=== PATIENT | male | born 1935 | race Caucasian/White ===

== ENCOUNTER 2016-09-02 13:24 | Outpatient (CLI) | payer MEDICARE, BC ==
[2016-09-02] VITALS (28 sets, daily range): BP systolic 108–155; BP diastolic 55–87; PULSE 60–87; RESP 16–31; TEMP 97.5–97.6; O2SAT 90–96; Ht 167.6 cm; Wt 86.6 kg
[~2016-09-02] VITALS: Ht 167.6 cm; Wt 86.6 kg
[~2016-09-02 13:24] MED LIST: ACET-2321 PO; ALLO300T2 PO; ASCO1TAB13; CARV3.12 PO; CEPH500C2 PO; CIDE300T3; FEXO180T56 PO; FEXO1TAB8; FLUT9.9S EA NOSTRIL; FURO40TA70 PO; GLUC1TAB22 PO; LEVO50TA59 PO; LOSA50TA17 PO; METF-200 PO; MULT-543 PO; MUPI15CR12 TOP; NITR0.4T39 SL; OMEG1CAP17 PO; PANT40TA27 PO; ROSU5TAB3 PO; SALINE FLUSH 10ml SYRINGE IVF PRN; SOTA80TA25 PO; THIA100T55 PO; UBID200C8 PO; [UNRECOGNIZED DRUG - CODE] PO; [UNRECOGNIZED DRUG - CODE] PO
--- NOTE | 2016-09-02 13:35 | NUR ---
ARRIVAL TO FLOOR PT ARRIVED TO FLOOR AT THIS TIME, PT ACCOMPANIED BY HIS . PT TO ROOM AND CHANGING INTO GOWNS. NO CONCERNS NOTED, WILL CONTINUE TO MONITOR.
[2016-09-02 14:51] LABS: BASOPHILS # (AUTO) 0.1 T/MM3 (0-0.2); EOSINOPHILS # (AUTO) 0.3 T/MM3 (0-0.5); EOSINOPHILS % (AUTO) 2.9 % (0-4); HCT - HEMATOCRIT 47.5 % (41-53); HGB - HEMOGLOBIN 15.6 GM/DL (13.5-17.5); IMMATURE GRANULOCYTE # (AUTO) 0.16 T/MM3 (0.00-0.03); IMMATURE GRANULOCYTE % (AUTO) 1.6 % (0.0-0.5); LYMPHOCYTES # (AUTO) 1.8 T/MM3 (1-4.8); MEAN CORPUSCULAR HGB 33.5 UUG (26-34); MEAN CORPUSCULAR HGB CONC(MCHC 32.8 GM/DL (31-37); MEAN CORPUSCULAR VOLUME 101.9 UM3 (80-100); MEAN PLATELET VOLUME 10.1 UM3 (9.4-12.4); MONOCYTES # (AUTO) 0.6 T/MM3 (0-0.8); MONOCYTES % (AUTO) 6.3 % (0-9.0); NEUTROPHILS #(AUTO)-ABSOLUTE 7.2 T/MM3 (1.8-7.7); NEUTROPHILS % (AUTO) 70.2 % (33-66); RED BLOOD COUNT 4.66 M/MM3 (4.50-5.90); WBC - WHITE BLOOD COUNT 10.2 T/MM3 (4.5-11.0)
[2016-09-02 14:57] LABS: INR 1.33 (0.76-1.04); PROTHROMBIN TIME 14.5 SEC (9.31-12.49)
[2016-09-02 15:02] LABS: ANION GAP 13 MEQ/L (5-15); BUN/CREATININE RATIO 28 RATIO (6-26); CHLORIDE 108 MEQ/L (98-107); CO2 - CARBON DIOXIDE 25 MEQ/L (22-30); CREATININE 1.4 MG/DL (0.8-1.5); GLOMERULAR FILTRATION RATE 49; GLUCOSE 136 MG/DL (75-110); POTASSIUM 4.1 MEQ/L (3.6-5); SODIUM 146 MEQ/L (134-144)
[2016-09-02] MEDS ORDERED: PRED5TAB PO (15:23)
[2016-09-02] MEDS ORDERED: ACET-62 PO (15:23)
[2016-09-02] MEDS: NORMAL SALINE 1,000 ML IV SCH (15:55)
[2016-09-02] MEDS ORDERED: MIDAZOLAM 2mg/2ml INJECTION ONE (17:13)
[2016-09-02] MEDS ORDERED: FENTANYL 100mcg/2ml INJECTION ONE (17:13)
[2016-09-02] MEDS ORDERED: LIDOCAINE 1% (10mg/ml) 30ml SDV ONE (17:16)
[2016-09-02] MEDS ORDERED: SALINE FLUSH 10ml SYRINGE ONE (17:16)
[2016-09-02] MEDS ORDERED: WATER FOR INJECTION 20 ML ONE (17:16)
[2016-09-02] MEDS ORDERED: CEFAZOLIN 1 GRAM INJECTION ONE (17:16)
[2016-09-02] MEDS ORDERED: BACITRACIN INJ. 50,000 UNITS VL ONE (17:17)
--- NOTE | 2016-09-02 17:27 | NUR ---
LEFT FLOOR PT LEFT FLOOR AT THIS TIME, THIS RN NOT AWARE THAT PT WAS TAKEN FROM THE FLOOR AT THIS TIME.
--- NOTE | 2016-09-02 17:31 | NUR ---
CM CM IN TO VISIT WITH PT. HE IS ALERT AND ORIENTED. HE IS WITNESSED BY CM TO BE UP AT [facility]. HIS IS PRESENT. SHE DENIES DC NEEDS. SHE PLANS TO CARE FOR PT AT HOME. THEY ARE GIVEN BAUTISTA AND CM CONTACT INFORMATION. Addendum: 09/02/16 at 1732 by AN NEGRO RN Amended: Links added.
[2016-09-02] MEDS ORDERED: BISACODYL 5 MG E.C. TABLET PO PRN (18:00)
[2016-09-02] MEDS ORDERED: MAG-AL + SIM LIQUID 30 ML UDC PO PRN (18:00)
[2016-09-02] MEDS ORDERED: ACETAMINOPHEN 325 MG TABLET PO PRN (18:00)
[2016-09-02] MEDS ORDERED: OXYCODONE/APAP 5mg/325mg TABLET PO PRN (18:00)
--- NOTE | 2016-09-02 18:29 | NUR ---
ARRIVED TO FLOOR PT ARRIVED BACK TO FLOOR WITH IMAGING STAFF. PT ALERT AND ORIENTED X3. PT ABLE TO TRANSFER SELF FROM CART TO BED. NO CONCERNS NOTED AT THIS TIME.
[2016-09-02] MEDS ORDERED: NITROGLYCERIN 0.4 MG SUBLINGUAL TABLET SL PRN (18:45)
--- NOTE | 2016-09-02 19:48 | NUR ---
PROGRESS NOTE PT BACK FROM PROCEDURE AT 1830. PT ALERT AND ORIENTED X3. VITAL SIGNS STABLE, ON RA. THE PT IS RESTING IN BED WITH HOB ELEVATED AT 30-45 DEGREES. PT HAS EATEN DINNER AND HAS TOLERATED WELL. NO VOID POST PROCEDURE AT THIS TIME. PT HAS NS RUNNING AT 75CC/HR THROUGH A RIGHT AC 18G. PT AND PT'S MADE AWARE THAT PT WILL BE STAYING THE NIGHT. PT DENIES PAIN AT THIS TIME. DRESSING C/D/I. NO OTHER CONCERNS NOTED.
[2016-09-02] MEDS ORDERED: ALLOPURINOL 300 MG TABLET PO SCH (20:00)
[2016-09-02] MEDS ORDERED: FEXOFENADINE 180 MG TABLET PO SCH (20:00)
[2016-09-02] MEDS ORDERED: ROSUVASTATIN 10 MG TABLET PO SCH (20:00)
[2016-09-02] MEDS: PANTOPRAZOLE 40 MG TABLET PO SCH (20:40)
[2016-09-02] MEDS: SOTALOL 80 MG TABLET PO SCH (20:41)
[2016-09-02] MEDS: FLUTICASONE NASAL SPRAY 50 MCG EA NOSTRIL SCH (20:42)
[2016-09-02] MEDS: THIAMINE 100 MG TABLET PO SCH (20:42)
[2016-09-02] MEDS: ACETAMINOPHEN 500 MG TABLET PO SCH (20:43)
[2016-09-02] MEDS: COENZYME Q10 200 MG TABLET PO SCH (20:43)
[2016-09-02] MEDS: OMEGA-3 ACID ESTERS 1 G CAPSULE PO SCH (20:43)
[2016-09-02] MEDS ORDERED: MUPIROCIN 2% TOP PRN (21:00)
[2016-09-02] MEDS: CEFAZOLIN 1 G in NORMAL SALINE 100 ML IV SCH (22:34)
--- NOTE | 2016-09-02 23:55 | NUR ---
COMFORT GAVE 1 PO PERCOCET AT THIS TIME FOR 6/10 PAIN AT LEFT CHEST INCISION. NO RADIATING PAIN OR "CHEST PAIN".
[2016-09-03 00:46] VITALS: BP 125/61; PULSE 60; RESP 22; TEMP 97.6; O2SAT 91
--- NOTE | 2016-09-03 01:04 | NUR ---
Chart Check 24 hour chart check completed
[2016-09-03 03:27] VITALS: BP 139/77; PULSE 60; RESP 25; TEMP 97.6; O2SAT 95
[2016-09-03] MEDS: NORMAL SALINE 1,000 ML IV SCH (05:02)
--- NOTE | 2016-09-03 05:25 | NUR ---
SUMMARY PT AWAKE MOST OF NIGHT, BUT PLEASANT. DENIED NEEDS AT 0315 WHEN VITALS TAKEN. DRESSING TO LEFT CHEST ASYMPTOMATIC, DRY AND INTACT. PAIN CONTROLLED WITH PO PERCOCET (PRN) AND TYLENOL (SCHEDULED). STEADY ON FEET. ALERT AND ORIENTED. NO CHEST PAIN OR SOA.
[2016-09-03] MEDS: PANTOPRAZOLE 40 MG TABLET PO SCH (06:03)
[2016-09-03] MEDS: CEFAZOLIN 1 G in NORMAL SALINE 100 ML IV SCH (06:05)
[2016-09-03] MEDS ORDERED: LEVOTHYROXINE 50 MCG TABLET PO SCH (06:30)
--- NOTE | 2016-09-03 07:00 | NUR ---
UPDATE/BEGINNING OF SHIFT REPORTS RECEIVED FROM JACOB VALENTE FOR CONTINUED CARE. PT IS AWAKE, A&OX3, RESP RATE EVEN AND NON LABORED. PT ENCOURAGED AND HELPED TO ORDER BREAKFAST. DENIES ANY CHEST PAIN OR SOA. DENIES ANY OTHER COMPLAINTS AT THIS TIME. INCISION SITE TO L SIDE OF CHEST HAS A DRY AND INTACT DRESSING. PT STATES INCISION SITE IS SORE USUAL, RATES A 3/10.
[2016-09-03 07:20] VITALS: BP 171/80; PULSE 62; RESP 22; TEMP 97.6; O2SAT 96
[2016-09-03] MEDS ORDERED: METFORMIN 500 MG TABLET PO SCH (08:00)
[2016-09-03] MEDS ORDERED: PredniSONE 10 MG TABLET PO SCH (08:00)
[2016-09-03] MEDS ORDERED: CARVEDILOL 3.125 MG TABLET PO SCH (08:00)
--- NOTE | 2016-09-03 08:20 | DI ---
INDICATION: ITS.REASON: ppm PROCEDURE: CHEST 2-VIEWS UPRIGHT (PA \T\ LAT) Encounter: Initial COMPARISON: September 02, 2016 FINDINGS: Left dual lead cardiac pacemaker defibrillator appears stable without evidence of lead fracture or discontinuity. No visible pneumothorax. Lungs are stable. Heart size and mediastinal contours are unchanged. Prior CABG. Impression: Stable appearance of the left pacemaker defibrillator. .
--- NOTE | 2016-09-03 08:21 | DI ---
Indication: ITS.REASON: ppm PROCEDURE: CHEST 1 VIEW: Encounter: Initial Comparison: None Findings: Prior CABG. Left cardiac pacemaker defibrillator with right atrial and right ventricular leads. No evidence of lead fracture or discontinuity. No visible pneumothorax. Cardiac silhouette is enlarged. Mediastinal contours are unremarkable. Pulmonary vascularity is normal. Impression: No visible pneumothorax. .
[2016-09-03] MEDS: SOTALOL 80 MG TABLET PO SCH (08:32)
[2016-09-03] MEDS: COENZYME Q10 200 MG TABLET PO SCH (08:33)
[2016-09-03] MEDS: OMEGA-3 ACID ESTERS 1 G CAPSULE PO SCH (08:34)
[2016-09-03] MEDS: THIAMINE 100 MG TABLET PO SCH (08:35)
[2016-09-03] MEDS: ACETAMINOPHEN 500 MG TABLET PO SCH (08:35)
[2016-09-03] MEDS: FLUTICASONE NASAL SPRAY 50 MCG EA NOSTRIL SCH (08:35)
[2016-09-03] MEDS ORDERED: WARFARIN 2.5 MG TABLET PO SCH (09:00)
[2016-09-03] MEDS ORDERED: LOSARTAN 25 MG TABLET PO SCH (09:00)
[2016-09-03] MEDS ORDERED: FUROSEMIDE 40 MG TABLET PO SCH (09:00)
[2016-09-03] MEDS ORDERED: MINO100C43 PO (10:02)
[2016-09-03 10:20] VITALS: BP 146/92; PULSE 60; RESP 22; O2SAT 95
--- NOTE | 2016-09-03 10:30 | NUR ---
DISMISSAL UPDATE PT AND GIVEN DISMISSAL INSTRUCTIONS, THEY BOTH STATE UNDERSTANDING. PT'S IV DC'D, 2X2 AND COBAND PLACED. PT WHEELED OUTSIDE AND HELPED TO CAR.
[2016-09-03] MEDS ORDERED: MINOCYCLINE 100 MG CAPSULE PO SCH (12:00)
--- NOTE | 2016-09-03 13:37 | NUR ---
DM screen Diet: Cardiac Patient here less than 24 hours and was discharged before seen by DANA. RD will attempt to contact patient to offer outpatient counseling. RD available @ [phone] Addendum: 09/03/16 at [address] Student charting reviewed by Crepe Laminator Operator.
== END 2016-09-03 10:36 | disposition home or self-care (01) ==
LOC: CATH 13:24 → SRG 13:25 → CATH 09-03 10:36
PROVIDERS: ATTEND Internal Medicine Cardiovascular Disease
DX: Z45.02 Encounter for adjustment and management of automatic implantable cardiac defibrillator (principal); I48.0 Paroxysmal atrial fibrillation; I25.810 Atherosclerosis of coronary artery bypass graft(s) without angina pectoris; Z95.5 Presence of coronary angioplasty implant and graft; I25.5 Ischemic cardiomyopathy; I10 Essential (primary) hypertension; E78.2 Mixed hyperlipidemia; E11.9 Type 2 diabetes mellitus without complications; F17.210 Nicotine dependence, cigarettes, uncomplicated; I25.2 Old myocardial infarction; Z79.01 Long term (current) use of anticoagulants; Z79.52 Long term (current) use of systemic steroids; Z79.899 Other long term (current) drug therapy; Z82.49 Family history of ischemic heart disease and other diseases of the circulatory system; Z82.3 Family history of stroke
CPT/HCPCS: 33263; 71010; 71020; 80048; 85025; 85610; 93005; A9270; C1721; J0690; J2250; J3010; J7030; J7050; J7512